=== PATIENT | male | born 1990 | race African-American/Black ===

== ENCOUNTER 2019-03-12 13:00 | Emergency (ER) | payer OTHER ==
[~2019-03-12] VITALS: Ht 167.6 cm; Wt 63.5 kg
[2019-03-12 13:26] VITALS: TEMP 98.1
[2019-03-12 14:15] VITALS: BP 122/68
== END 2019-03-12 14:14 | disposition home or self-care (01) ==
LOC: ED 13:00
DX: R30.0 Dysuria (principal)
CPT/HCPCS: 81000; 99282